=== PATIENT | male | born 1935 | race Caucasian/White ===

== ENCOUNTER → 2019-03-09 | Outpatient (CLI) | payer OTHER, MEDICARE ==
--- NOTE | 2019-03-09 17:54 | RADIOLOGY REPORT (SQ) ---
EXAM DESCRIPTION: MRI CERVICAL SPINE WITHOUT COMPLETED DATE/TIME: 03/09/2019 9:40 am REASON FOR STUDY: (M54.12)CERVICAL RADICULOPATHY COMPARISON: None. TECHNIQUE: Sagittal and Axial imaging includes T1, T2, STIR and gradient echo sequences. LIMITATIONS: None. FINDINGS: ALIGNMENT: Mild degenerative anterolisthesis at C4-5 and C6-7. VERTEBRAE: Intact. BONE MARROW: Mild endplate marrow edema at several levels. Most notable at C4-5 DISCS: Multilevel disc signal and height loss. Most notable C4-5 thru C6-7. HARDWARE: None in the spine. CORD AND BASE OF BRAIN: Normal in size and signal intensity. SOFT TISSUES: No soft tissue masses. C1-C2: No significant spinal stenosis. C2-C3: Suspect bilateral mild foraminal narrowing. C3-C4: Disc and facet disease with mild central stenosis. Bilateral marked foraminal stenosis suspec mann. C4-C5: Disc osteophyte complex without cord compression or high-grade central stenosis. Marked irish inal stenosis. C5-C6: Disc osteophyte complex without cord compression. Mild central stenosis. Marked bilateral fo raminal stenosis. C6-C7: Broad disc bulge without cord compression or high-grade central stenosis. Significant bilater al foraminal stenosis suspected. C7-T1: No significant spinal stenosis or exit foraminal stenosis. UPPER THORACIC: Incompletely imaged. No significant spinal stenosis or exit foraminal stenosis. OTHER: No other significant finding. IMPRESSION: 1. Multilevel cervical spondylosis. No evidence of cord compression or high-grade central stenosis. There is multilevel foraminal narrowing present throughout. 2. No fracture or worrisome bone lesion. TECHNICAL DOCUMENTATION: JOB ID: [id number]- All Rights Reserved Reading location - IP/workstation name: [email or web address]
== END ==
LOC: RAD 08:51
PROVIDERS: ATTEND Physician Assistant
DX: M54.12 Radiculopathy, cervical region (principal); M47.892 Other spondylosis, cervical region
CPT/HCPCS: 72141